=== PATIENT | female | born 1955 | race Caucasian/White ===

== ENCOUNTER 2024-08-13 12:08 | Inpatient (IN) | payer MEDICARE ==
[2024-08-13 14:24] VITALS: BMI 21.4
[2024-08-13] MEDS ORDERED: TACROLIMUS 1 MG PO SCH (17:00)
[2024-08-13] MEDS: Calcium Carbonate 500 MG ChewTAB PO SCH (20:39)
[2024-08-13] MEDS: Magnesium Oxide 400 MG TAB PO SCH (20:39)
[2024-08-13] MEDS: HYDROcodone/Acetaminophen 5/325 mg Tablet PO PRN (20:39)
[2024-08-13] MEDS: Aspirin 325 MG TAB PO SCH (20:39)
[2024-08-13] MEDS: Losartan 50 MG TAB PO SCH (20:40)
[2024-08-13] MEDS: Oxybutynin 5 MG TAB PO SCH (20:41)
[2024-08-14 04:59] LABS: #Basophils 0.1 thou/uL (0.0-0.2); #Eosinophils 0.1 thou/uL (0.0-0.7); #Monocytes 0.9 thou/uL (0.11-0.59); #Neutrophils 6.9 thou/uL (1.40-6.50); %Basophils 0.6 % (0.0-1.0); %Eosinophils 1.5 % (0.0-10.0); %Lymphocytes 20.1 % (21.0-51.0); %Monocytes 9.4 % (0.0-10.0); %Neutrophils 68.4 % (42.0-75.0); Hematocrit 33.7 % (36.0-47.0); Hemoglobin 11.2 g/dL (12.0-16.0); Mean Corpuscular HGB CONC 33.3 g/dL (32.0-36.0); Mean Corpuscular Hemoglobin 28.4 pg (27.0-31.0); Mean Corpuscular Volume 85.2 fl (78.0-98.0); Mean Platelet Volume 6.2 fL (7.4-10.4); Platelet Count 231 10x3/uL (130-400); RBC Distribution Width 11.7 % (11.5-14.5); Red Blood Cell (RBC) Count 3.95 mill/uL (4.20-5.40); White Blood Cell (WBC) Count 10.1 10x3/uL (4.8-10.8)
[2024-08-14 05:15] LABS: ALT (SGPT) Less than 4 U/L (Less than 34); AST (SGOT) 18 U/L (11-34); Alkaline Phosphatase 71 U/L (40-110); Anion Gap 15 mmol/L (10-20); BUN (Urea Nitrogen) 23 mg/dL (9.8-20.1); Bilirubin, Total 0.7 mg/dL (0.3-1.2); Calc. Creatinine Clearance 39 mL/min (70-130); Calcium 10.2 mg/dL (7.8-10.44); Carbon Dioxide 23 mmol/L (23-31); Chloride 111 mmol/L (98-107); Estimated GFR 44; Globulin 3.2 g/dL (2.4-3.5); Glucose 134 mg/dL (80-115); Potassium 5.1 mmol/L (3.5-5.1); Protein, Total 6.2 g/dL (5.8-8.1); Sodium 144 mmol/L (136-145)
[2024-08-14] MEDS: MYCOPHENOLATE 180 MG PO SCH (08:45)
[2024-08-14] MEDS: Cholecalciferol 1,000 UNITS (25 MCG) TAB PO SCH (09:07)
[2024-08-14] MEDS: Famotidine 20 MG TAB PO SCH (09:07)
[2024-08-14] MEDS: Metoprolol Succinate XL 25 MG ER.TAB PO SCH (09:07)
[2024-08-14] MEDS: Senokot 8.6 MG TAB PO PRN (09:08)
[2024-08-14] MEDS: predniSONE 5 MG TAB PO SCH (09:08)
[2024-08-14] MEDS: NIFEdipine XL 30 MG ER.TAB PO SCH (09:08)
[2024-08-14 13:00] VITALS: BMI 21.4
[2024-08-14] MEDS: Acetaminophen 325 MG TAB PO PRN (20:18)
[2024-08-15 17:12] LABS: Bilirubin Negative (Negative); Blood, Urine Small (Negative); Clarity Slightly Cloudy (Clear); Glucose, Urine (Dipstick) Negative (Negative); Ketone, Urine Trace mg/dL (Negative); Leukocyte Small (Negative); Nitrite Negative (Negative); Protein, Urine (Dipstick) > or equal to 300 mg/dL (Neg-Trace); Specific Gravity, Urine 1.025 (1.005-1.030); Urobilinogen 0.2 mg/dL (Less than 2); pH, Urine 5.5 (5.0-9.0)
[2024-08-15 17:18] LABS: Bacteria/HPF 4+ HPF (None Seen); Transitional Epithelial 0-3 HPF (None Seen)
[2024-08-15] MEDS: Cyclobenzaprine 10 MG TAB PO PRN (23:16)
[2024-08-16] MEDS: Cyclobenzaprine 10 MG TAB PO SCH (16:02)
[2024-08-19] MEDS: Nitrofurantoin Monohyd/M-Cryst 100 MG CAP PO SCH (09:53)
[2024-08-19] MEDS: Meropenem 1 GM in Sodium Chloride 0.9% 100 ML IVPB SCH ×2 (12:06→17:07)
[2024-08-20] MEDS: Nitrofurantoin Monohyd/M-Cryst 100 MG CAP PO SCH (11:18)
[2024-08-21 06:13] VITALS: TEMP 97.6
[2024-08-21] MEDS: Ondansetron ODT 4 MG TAB PO PRN (08:00)
[2024-08-21 09:21] VITALS: BP 130/70
[2024-08-21] MEDS: REPATHA SURECLICK 140 MG SC SCH (09:21)
== END 2024-08-21 09:43 | disposition home or self-care (01) | DRG 564 ==
LOC: BURMED 12:08
PROVIDERS: ADMIT Family Medicine; ATTEND Family Medicine
PROC: F07Z9ZZ Gait Training/Functional Ambulation Treatment (ICD-10-PCS; principal; 2024-08-13)
DX: Z96.652 Presence of left artificial knee joint (principal); N18.6 End stage renal disease; N39.0 Urinary tract infection, site not specified; I12.0 Hypertensive chronic kidney disease with stage 5 chronic kidney disease or end stage renal disease; M17.12 Unilateral primary osteoarthritis, left knee; I25.10 Atherosclerotic heart disease of native coronary artery without angina pectoris; Z95.1 Presence of aortocoronary bypass graft; Z79.82 Long term (current) use of aspirin; Z79.899 Other long term (current) drug therapy; Z92.25 Personal history of immunosuppression therapy; R32 Unspecified urinary incontinence
CPT/HCPCS: 36415; 80053; 81001; 85025; 87077; 87086; 87186; J2185; J7512; Q0162

== ENCOUNTER 2025-03-25 12:03 | Inpatient (IN) | payer MEDICARE ==
[2025-03-25 19:47] VITALS: BMI 20.9
[2025-03-25] MEDS: Tacrolimus 0.5 MG CAP PO SCH (21:56)
[2025-03-25] MEDS: Methocarbamol 500 MG TAB PO SCH (21:56)
[2025-03-25] MEDS: Senokot S 8.6-50 MG TAB PO SCH (21:56)
[2025-03-25] MEDS: Mycophenolate DR 180 MG TAB PO SCH (21:57)
[2025-03-25] MEDS: Aspirin 81 mg Enteric Coated Tablet PO SCH (21:57)
[2025-03-25] MEDS: Oxybutynin 5 MG TAB PO SCH (21:57)
[2025-03-25] MEDS: Losartan 50 MG TAB PO SCH (21:58)
[2025-03-25] MEDS: HYDROcodone/Acetaminophen 5/325 mg Tablet PO PRN (23:34)
[2025-03-26] MEDS: Senokot S 8.6-50 MG TAB PO SCH (08:23)
[2025-03-26] MEDS: Enoxaparin 30 MG (0.3 mL) SYRINGE SC SCH (08:23)
[2025-03-26] MEDS: Metoprolol Succinate XL 100 MG ER.TAB PO SCH (08:23)
[2025-03-26] MEDS: Tacrolimus 0.5 MG CAP PO SCH ×2 (08:25→20:40)
[2025-03-26] MEDS: Mycophenolate DR 180 MG TAB PO SCH (08:26)
[2025-03-26] MEDS: Oxybutynin 5 MG TAB PO SCH (08:26)
[2025-03-26] MEDS: Aspirin 81 mg Enteric Coated Tablet PO SCH (08:27)
[2025-03-26] MEDS: NIFEdipine XL 30 MG ER.TAB PO SCH (08:27)
[2025-03-26] MEDS: Methocarbamol 500 MG TAB PO SCH (08:28)
[2025-03-26] MEDS: Famotidine 20 MG TAB PO SCH (08:28)
[2025-03-26 15:41] VITALS: BMI 20.9
[2025-03-26] MEDS: Losartan 50 MG TAB PO SCH (20:41)
[2025-03-28] MEDS: FLU (Fluad Triv) 25-26 (65UP)PF 45 MCG/0.5 ML Syringe IM ONE (09:00)
[2025-03-31] MEDS: Acetaminophen 325 MG TAB PO PRN (10:47)
[2025-03-31] MEDS: HYDROcodone/Acetaminophen 5/325 mg Tablet PO SCH (15:15)
[2025-04-02] MEDS ORDERED: HYDROcodone/Acetaminophen 5/325 mg Tablet PO PRN (16:19)
[2025-04-04] MEDS: Proctozone-HC 30 GM TUBE TOP SCH (13:29)
[2025-04-05] MEDS: Proctozone-HC 30 GM TUBE TOP SCH (09:49)
[2025-04-07 05:33] LABS: Anion Gap 14 mmol/L (10-20); BUN (Urea Nitrogen) 27 mg/dL (9.8-20.1); Calc. Creatinine Clearance 42 mL/min (70-130); Calcium 9.1 mg/dL (7.8-10.44); Carbon Dioxide 21 mmol/L (23-31); Chloride 109 mmol/L (98-107); Glucose 120 mg/dL (83-110); Potassium 4.1 mmol/L (3.5-5.1); Sodium 140 mmol/L (136-145)
[2025-04-07 05:58] LABS: Hematocrit 30.1 % (36.0-47.0); Hemoglobin 10.8 g/dL (12.0-16.0); Mean Corpuscular Hemoglobin 30.2 pg (27.0-31.0); Mean Corpuscular Volume 83.7 fl (78.0-98.0); Platelet Count 397 10x3/uL (130-400); Red Blood Cell (RBC) Count 3.59 mill/uL (4.20-5.40); White Blood Cell (WBC) Count 6.5 10x3/uL (4.8-10.8)
[2025-04-07 06:03] LABS: MDiff Complete? YES
[2025-04-08] MEDS: Enoxaparin 40 MG (0.4 mL) SYRINGE SC SCH (09:09)
[2025-04-09 06:01] VITALS: TEMP 98.5
[2025-04-09 07:51] VITALS: BP 148/72
== END 2025-04-09 11:32 | disposition home health service (06) | DRG 536 ==
LOC: BURMED 19:05
PROVIDERS: ADMIT Family Medicine; ATTEND Family Medicine
DX: S72.002A Fracture of unspecified part of neck of left femur, initial encounter for closed fracture (principal); M97.02XA Periprosthetic fracture around internal prosthetic left hip joint, initial encounter; Z94.0 Kidney transplant status; I10 Essential (primary) hypertension; I25.10 Atherosclerotic heart disease of native coronary artery without angina pectoris; Z96.652 Presence of left artificial knee joint; W18.30XA Fall on same level, unspecified, initial encounter; Z79.891 Long term (current) use of opiate analgesic; Z79.899 Other long term (current) drug therapy; Z79.82 Long term (current) use of aspirin; Z98.890 Other specified postprocedural states; Z95.1 Presence of aortocoronary bypass graft; Z99.3 Dependence on wheelchair
CPT/HCPCS: 36415; 80048; 85025; J1650; J7507; J7512; J7518; Q0169